=== PATIENT | female | born 1975 | race African-American/Black ===

== ENCOUNTER 2017-05-08 23:33 | Emergency (ER) | payer OTHER ==
[2017-05-09 00:18] LABS: ABSOLUTE BASOPHILS # (AUTO) 0.1 10^3/uL (0.0-0.2); ABSOLUTE EOSINOPHILS # (AUTO) 0.4 10^3/uL (0.0-0.6); ABSOLUTE LYMPHOCYTES (AUTO) 2.6 10^3/uL (0.5-4.7); ABSOLUTE MONOCYTES (AUTO) 0.5 10^3/uL (0.1-1.4); ABSOLUTE NEUT (AUTO) 2.7 10^3/uL (1.7-8.2); BASOPHILS % (AUTO) 2.2 % (0-2); EOSINOPHILS % (AUTO) 6.3 % (0-6); HEMATOCRIT 27.7 % (36.0-47.0); HEMOGLOBIN 8.3 g/dL (12.0-15.5); HGB HCT DIFFERENCE -2.8; LYMPHOCYTES % (AUTO) 40.7 % (13-45); MEAN CORPUSCULAR HEMOGLOBIN 20.5 pg (27.0-33.4); MEAN CORPUSCULAR HGB CONC 30.1 g/dL (32.0-36.0); MEAN CORPUSCULAR VOLUME 68 fl (80-97); MONOCYTES % (AUTO) 8.1 % (3-13); RED BLOOD COUNT 4.06 10^6/uL (3.72-5.28); RED CELL DISTRIBUTION WIDTH 18.2 % (11.5-14.0); SEGMENTED NEUTROPHILS % (AUTO) 42.7 % (42-78); WHITE BLOOD COUNT 6.4 10^3/uL (4.0-10.5)
[2017-05-09 00:36] LABS: ALANINE AMINOTRANSFERASE 36 U/L (9-52); ALBUMIN 4.7 g/dL (3.5-5.0); ALKALINE PHOSPHATASE 65 U/L (38-126); ANION GAP 16 (5-19); ASPARTATE AMINO TRANSFERASE 24 U/L (14-36); BILIRUBIN,DIRECT 0.2 mg/dL (0.0-0.4); BILIRUBIN,TOTAL 0.2 mg/dL (0.2-1.3); BLOOD UREA NITROGEN 10 mg/dL (7-20); CALCIUM 9.9 mg/dL (8.4-10.2); CARBON DIOXIDE 22 mmol/L (22-30); CHLORIDE 104 mmol/L (98-107); CREATININE RESULT 0.87 mg/dL (0.52-1.25); GLUCOSE 100 mg/dL (75-110); LIPASE 94.2 U/L (23-300); POTASSIUM 4.5 mmol/L (3.6-5.0); SODIUM 142.1 mmol/L (137-145); TOTAL PROTEIN 8.5 g/dL (6.3-8.2)
[2017-05-09 01:09] LABS: APPEARANCE,URINE CLEAR; BILIRUBIN,URINE NEGATIVE (NEGATIVE); GLUCOSE, URINE NEGATIVE (NEGATIVE); KETONES,URINE NEGATIVE (NEGATIVE); LEUKOCYTE ESTERASE,URINE NEGATIVE (NEGATIVE); NITRITE,URINE NEGATIVE (NEGATIVE); PROTEIN,URINE NEGATIVE (NEGATIVE); URINE SPECIFIC GRAVITY 1.009; UROBILINOGEN,URINE NEGATIVE mg/dL (<2.0)
[2017-05-09] MEDS ORDERED: IBUPROFEN 800 MG TABLET PO ONE (01:31)
--- NOTE | 2017-05-09 01:33 | ER Document Report ---
ED GI/ - General Chief Complaint: Abdominal Pain Stated Complaint: LOWER ABDOMINAL PAIN Time Seen by Provider: 05/09/17 01:07 Notes: Patient is a 41-year-old female that comes emergency department for chief complaint of left lower quadrant pain, she states occasionally the pain feels like it radiates down towards her buttock area. She denies rectal pain. She states symptoms started tonight. She states that she has had this same symptoms twice in the past 8 months, states she was treated for diverticulitis after CAT scans both times. She has not had a colonoscopy. She denies bloody bowel movements, fever, chills, nausea/vomiting, other areas of pain. She admits that her bowel movement yesterday was hard, she takes iron for anemia, she is not on a stool softener. She has had umbilical hernia repair and C- sections. [place]. TRAVEL OUTSIDE OF THE [place] IN LAST 30 DAYS: No - Related Data Allergies/Adverse Reactions: No Known Allergies Allergy (Unverified 05/08/17 23:42) Past Medical History - General Information source: Patient - Social History Smoking Status: Never Smoker Frequency of alcohol use: None Drug Abuse: None Lives with: Family Family History: Reviewed & Not Pertinent Patient has suicidal ideation: No Patient has homicidal ideation: No - Medical History Medical History: Negative Renal/ Medical History: Denies: Hx Peritoneal Dialysis Past Surgical History: Reports: Hx Section, Hx Herniorrhaphy - Immunizations Immunizations up to date: Yes Hx Diphtheria, Pertussis, Tetanus Vaccination: Yes Review of Systems - Review of Systems Constitutional: No symptoms reported EENT: No symptoms reported Cardiovascular: No symptoms reported Respiratory: No symptoms reported Gastrointestinal: See HPI Genitourinary: No symptoms reported Female Genitourinary: No symptoms reported Musculoskeletal: No symptoms reported Skin: No symptoms reported Hematologic/Lymphatic: No symptoms reported Neurological/Psychological: No symptoms reported Physical Exam - Vital signs Vitals: Temp Pulse Resp BP Pulse Ox 98.6 F 87 16 138/84 H 98 05/08/17 23:38 05/08/17 23:38 05/08/17 23:38 05/08/17 23:38 05/08/17 23:38 Interpretation: Normal - General General appearance: Appears well, Alert In distress: None - HEENT Head: Normocephalic, Atraumatic Eyes: Normal Pupils: PERRL - Respiratory Respiratory status: No respiratory distress Chest status: Nontender Breath sounds: Normal Chest palpation: Normal - Cardiovascular Rhythm: Regular. No: Tachycardia Heart sounds: Normal auscultation, S1 appreciated, S2 appreciated Murmur: No - Abdominal Inspection: Normal Distension: No distension Bowel sounds: Normal Tenderness: Tender - Tender in the left lower quadrant on examination, otherwise soft and benign abdomen. No guarding, no rigidity, no distention Organomegaly: No organomegaly - Back Back: Normal, Nontender. No: Tender, CVA tenderness - Extremities General upper extremity: Normal inspection, Nontender, Normal color, Normal ROM , Normal temperature General lower extremity: Normal inspection, Nontender, Normal color, Normal ROM , Normal temperature, Normal weight bearing. No: Dez's sign - Neurological Neuro grossly intact: Yes Cognition: Normal Orientation: AAOx4 Amanuel Coma Scale Eye Opening: Spontaneous Amanuel Coma Scale Verbal: Oriented Amanuel Coma Scale Motor: Obeys Commands [place] Coma Scale Total: 15 Speech: Normal Motor strength normal: LUE, RUE, LLE, RLE Sensory: Normal - Psychological Associated symptoms: Normal affect, Normal mood - Skin Skin Temperature: Warm Skin Moisture: Dry Skin Color: Normal Course - Re-evaluation Re-evalutation: Patient with left lower quadrant pain on examination, she is nontoxic appearing however. No tachycardia, fever, hypotension, no leukocytosis, lab work is unremarkable other than chronic already known iron deficiency anemia. X-ray does show some moderate stool load but nothing in the lower quadrants or rectal vault specifically. Discussed with patient and significant other in detail. Patient has already had 2 CAT scans in about 6 months, presents with the same symptoms that she had last time she had positive CAT scan showing diverticulitis but no surgical abnormality. No evidence of surgical abnormality based on patient's presentation and workup. Patient will be given stool softeners, symptom management, and antibiotics, discussed follow-up, discussed return precautions, patient and significant other state satisfaction and agreement with plan. - Vital Signs Vital signs: Temp Pulse Resp BP Pulse Ox 98.6 F 81 16 129/84 H 99 05/08/17 23:38 05/09/17 03:46 05/09/17 03:46 05/09/17 03:46 05/09/17 03:46 - Laboratory Result Diagrams: 05/09/17 00:00 05/09/17 00:00 Laboratory results interpreted by me: 05/09/17 05/09/17 00:00 00:00 Hgb 8.3 L Hct 27.7 L MCV 68 L MCH 20.5 L MCHC 30.1 L RDW 18.2 H Eosinophils % 6.3 H Basophils % 2.2 H Total Protein 8.5 H Discharge - Discharge Clinical Impression: Left lower quadrant pain Condition: Stable Disposition: HOME, SELF-CARE Additional Instructions: Your workup shows no concerning findings, shows anemia with hemoglobin of 8.8. Imaging shows some constipation, nonspecific, no acute abnormalities. Because of your symptoms take Cipro and Flagyl as directed for suspected diverticulitis , I also recommend stool softener, use pain medication only sparingly as this can constipate you further. Clear liquid diet initially as before. Return immediately if you worsen in any way including bloody bowel movements, fever, severe pain, vomiting, or any other concerning symptoms. Prescriptions: Ciprofloxacin HCl [Cipro 500 mg Tablet] 500 mg PO BID #14 tablet Docusate Sodium [Colace 100 mg Capsule] 100 mg PO DAILY #30 capsule Hydrocodone/Acetaminophen [[place] 5-325 mg Tablet] 1 - 2 tab PO ASDIR #10 tablet Metronidazole [Flagyl 500 mg Tablet] 500 mg PO TID #21 tablet Ondansetron [Zofran Odt 4 mg Tablet] 1 - 2 tab PO Q4H PRN #15 tab.rapdis PRN Reason: For Nausea/Vomiting
--- NOTE | 2017-05-09 02:38 | RADIOLOGY REPORT (SQ) ---
EXAM DESCRIPTION: ACUTE ABDOMEN SERIES COMPLETED DATE/TIME: 05/09/2017 2:09 am REASON FOR STUDY: abdominal pain COMPARISON: None. NUMBER OF VIEWS: Three views. TECHNIQUE: Frontal chest, supine abdomen and upright/decubitus abdomen radiographic images acquired. LIMITATIONS: None. FINDINGS: CHEST: Lungs clear of infiltrates. FREE AIR: None. No abnormal gas collections. BOWEL GAS PATTERN: Nonobstructive pattern. No dilated loops or air fluid levels. Moderate colonic st ool retention. CALCIFICATIONS: No suspicious calcifications. HARDWARE: None in the abdomen. SOFT TISSUES: No gross mass or suggestion of organomegaly. BONES: No acute fracture. No worrisome bone lesions. Mild dextro convexity of the lower thoracic sp ine. OTHER: No other significant finding. IMPRESSION: NO RADIOGRAPHIC EVIDENCE FOR ACUTE ABDOMINAL DISEASE. TECHNICAL DOCUMENTATION: JOB ID: [id number] [employer]- All Rights Reserved
[2017-05-09] MEDS ORDERED: MAGNESIUM CITRATE 296 ML BOTTLE PO ONE (03:03)
[2017-05-09] MEDS ORDERED: METRONIDAZOLE 500 MG TABLET PO ONE (03:04)
[2017-05-09] MEDS ORDERED: CIPROFLOXACIN HCL 500 MG TABLET PO ONE (03:04)
[2017-05-09] MEDS ORDERED: ONDANSETRON ODT 4 MG TAB (6 TAB/DSPK) PO PRN (03:04)
[2017-05-09] MEDS ORDERED: HYDROCODONE/ACETAMINOPHEN 5-325 MG 6 TAB/DSPK PO PRN (03:04)
[2017-05-09 03:47] VITALS: BP 129/84
== END 2017-05-09 03:46 | disposition home or self-care (01) ==
LOC: ER 23:33
DX: R10.32 Left lower quadrant pain (principal); R10.30 Lower abdominal pain, unspecified
CPT/HCPCS: 99284; 36415; 83690; 85025; 80053; 81001; 74022; J3490